=== PATIENT | female | born 1960 | race Two or more races ===

== ENCOUNTER → 2017-12-29 17:29 | Outpatient (CLI) | payer OTHER | END | disposition home or self-care (01) | LOC: LAB 17:29 | DX: R50.9 Fever, unspecified (principal) ==

== ENCOUNTER → 2017-12-29 | Outpatient (CLI) | payer OTHER ==
[~2017-12-29] VITALS: Ht 152.4 cm; Wt 103.0 kg
[~2017-12-29] MED LIST: ATACAND HCT 31 UDTA1; ATACAND32 MG PO; ATARAX50 MG; ATARAX50 MG PO; BACTROBAN OINT22 GM TP; BETAMETHASONE D15 GM TP; CEFADROXIL500 MG PO; HYDROXYZINE HCL 50 MG PO; NABUMETONE750 MG PO; PEDIALYTE1000 ML PO; SINGULAIR10 MG PO
== END | disposition home or self-care (01) ==
LOC: PPHC 16:08
DX: B34.9 Viral infection, unspecified (principal); Z01.89 Encounter for other specified special examinations

== ENCOUNTER 2018-11-24 07:40 | Outpatient (CLI) | payer OTHER | END 2018-11-24 13:36 | disposition home or self-care (01) | LOC: NUCLEAR 07:40 | DX: M05.79 Rheumatoid arthritis with rheumatoid factor of multiple sites without organ or systems involvement (principal); M87.059 Idiopathic aseptic necrosis of unspecified femur | CPT/HCPCS: 78315; A9503 ==

== ENCOUNTER 2023-10-11 09:51 | Outpatient (CLI) | payer OTHER | END 2023-10-11 09:53 | disposition home or self-care (01) | LOC: NUCLEAR 09:51 | PROVIDERS: ATTEND Internal Medicine | DX: L03.116 Cellulitis of left lower limb (principal); M79.605 Pain in left leg ==

== ENCOUNTER 2024-01-26 15:27 | Outpatient (CLI) | payer OTHER | END 2024-01-26 15:28 | disposition home or self-care (01) | LOC: NUCLEAR 15:27 | PROVIDERS: ATTEND Internal Medicine | DX: M79.605 Pain in left leg (principal) ==

== ENCOUNTER 2024-03-14 07:22 | Outpatient (CLI) | payer OTHER | END 2024-03-14 07:23 | disposition home or self-care (01) | LOC: NUCLEAR 07:22 | PROVIDERS: ATTEND Internal Medicine Rheumatology | DX: M05.79 Rheumatoid arthritis with rheumatoid factor of multiple sites without organ or systems involvement (principal); M87.059 Idiopathic aseptic necrosis of unspecified femur; M06.9 Rheumatoid arthritis, unspecified | CPT/HCPCS: 78315; A9503 ==